=== PATIENT | female | born 1935 | race Caucasian/White ===

== ENCOUNTER 2018-04-27 07:17 | Outpatient (RCR) | payer MEDICARE ==
[~2018-04-27] VITALS: Ht 162.6 cm; Wt 61.2 kg
[2018-04-27] MEDS ORDERED: Methohexital Sodium Syr 100mg/10ml IVP ONE ×2 (07:18)
[2018-04-27] MEDS ORDERED: Succinylcholine 20mg/ml 10ml vial ONE ×2 (07:18)
[2018-04-27] MEDS ORDERED: NS 500ML ONE ×2 (07:18)
[2018-04-27 08:48] VITALS: BP 141/90
[2018-04-27] MEDS ORDERED: Sodium Chloride 500ML 500 ML IV ONE (09:01)
[2018-04-27 09:05] VITALS: BP 149/77
[2018-04-27 09:10] VITALS: BP 159/73
[2018-04-27 09:15] VITALS: BP 153/86
[2018-04-27 09:20] VITALS: BP 167/87
[2018-04-27 13:51] VITALS: BP 141/90
[2018-04-29 08:38] VITALS: BP 121/74
[2018-04-29] MEDS ORDERED: Sodium Chloride 500ML 500 ML IV ONE (08:51)
[2018-04-29 08:55] VITALS: BP 148/70
[2018-04-29 09:00] VITALS: BP 144/62
[2018-04-29 09:05] VITALS: BP 119/81
[2018-04-29 09:10] VITALS: BP 135/71
[2018-05-02] MEDS ORDERED: Succinylcholine 20mg/ml 10ml vial ONE (08:00)
[2018-05-02] MEDS ORDERED: NS 500ML ONE (08:00)
[2018-05-02] MEDS ORDERED: Methohexital Sodium Syr 100mg/10ml IVP ONE (08:00)
[2018-05-02 09:30] VITALS: BP 122/67
[2018-05-02] MEDS ORDERED: Sodium Chloride 500ML 500 ML IV ONE (09:42)
[2018-05-02 09:45] VITALS: BP 133/55
[2018-05-02 09:50] VITALS: BP 120/45
[2018-05-02 09:55] VITALS: BP 129/76
[2018-05-02 10:00] VITALS: BP 128/59
[2018-05-04] MEDS ORDERED: Succinylcholine 20mg/ml 10ml vial ONE (08:00)
[2018-05-04] MEDS ORDERED: NS 500ML ONE (08:00)
[2018-05-04] MEDS ORDERED: Methohexital Sodium Syr 100mg/10ml IVP ONE (08:00)
[2018-05-04 08:45] VITALS: BP 112/65
[2018-05-04] MEDS ORDERED: Sodium Chloride 500ML 500 ML IV ONE (08:57)
[2018-05-04 09:00] VITALS: BP 121/72
[2018-05-04 09:05] VITALS: BP 127/48
[2018-05-04 09:10] VITALS: BP 115/68
[2018-05-06] MEDS ORDERED: Acetaminophen 650 MG SUPP RECTAL ONE (08:00)
[2018-05-06] MEDS ORDERED: Succinylcholine 20mg/ml 10ml vial ONE (08:00)
[2018-05-06] MEDS ORDERED: NS 500ML ONE (08:00)
[2018-05-06] MEDS ORDERED: Methohexital Sodium Syr 100mg/10ml IVP ONE (08:00)
[2018-05-06 09:15] VITALS: BP 117/62
[2018-05-06] MEDS ORDERED: Sodium Chloride 500ML 500 ML IV ONE (09:28)
[2018-05-06 09:30] VITALS: BP 139/57
[2018-05-06 09:35] VITALS: BP 128/66
[2018-05-06 09:40] VITALS: BP 126/90
[2018-05-06 09:45] VITALS: BP 126/66
[2018-05-09] MEDS ORDERED: Succinylcholine 20mg/ml 10ml vial ONE (06:00)
[2018-05-09] MEDS ORDERED: NS 500ML ONE (06:00)
[2018-05-09] MEDS ORDERED: Methohexital Sodium Syr 100mg/10ml IVP ONE (06:00)
[2018-05-09 09:23] VITALS: BP 110/67
[2018-05-09] MEDS ORDERED: Sodium Chloride 500ML 500 ML IV ONE (09:36)
[2018-05-09 09:40] VITALS: BP 150/66
[2018-05-09 09:45] VITALS: BP 136/76
[2018-05-09 09:50] VITALS: BP 137/72
[2018-05-09 09:55] VITALS: BP 135/77
[2018-05-11] MEDS ORDERED: Succinylcholine 20mg/ml 10ml vial ONE (06:00)
[2018-05-11] MEDS ORDERED: Methohexital Sodium Syr 100mg/10ml IVP ONE (06:00)
[2018-05-11] MEDS ORDERED: NS 500ML ONE (06:00)
[2018-05-11 09:24] VITALS: BP 115/57
[2018-05-11] MEDS ORDERED: Sodium Chloride 500ML 500 ML IV ONE (09:36)
[2018-05-11 09:40] VITALS: BP 157/81
[2018-05-11 09:45] VITALS: BP 123/80
[2018-05-11 09:50] VITALS: BP 130/55
[2018-05-11 09:55] VITALS: BP 140/65
[2018-05-13] MEDS ORDERED: NS 500ML ONE (06:00)
[2018-05-13] MEDS ORDERED: Methohexital Sodium Syr 100mg/10ml IVP ONE (06:00)
[2018-05-13] MEDS ORDERED: Succinylcholine 20mg/ml 10ml vial ONE (06:00)
[2018-05-13 09:23] VITALS: BP 115/72
[2018-05-13 09:35] VITALS: BP 138/68
[2018-05-13] MEDS ORDERED: Sodium Chloride 500ML 500 ML IV ONE (09:35)
[2018-05-13 09:40] VITALS: BP 98/66
[2018-05-13 09:45] VITALS: BP 113/55
[2018-05-18] MEDS ORDERED: NS 500ML ONE (08:00)
[2018-05-18] MEDS ORDERED: Methohexital Sodium Syr 100mg/10ml IVP ONE (08:00)
[2018-05-18] MEDS ORDERED: Succinylcholine 20mg/ml 10ml vial ONE (08:00)
[2018-05-18 11:42] VITALS: BP 125/66
[2018-05-18] MEDS ORDERED: Sodium Chloride 500ML 500 ML IV ONE (11:55)
[2018-05-18 12:00] VITALS: BP 160/81
[2018-05-18 12:05] VITALS: BP 154/74
[2018-05-18 12:10] VITALS: BP 136/70
[2018-05-18 12:15] VITALS: BP 145/82
== END 2018-05-25 | disposition home or self-care (01) ==
LOC: ECT 07:17
DX: F31.5 Bipolar disorder, current episode depressed, severe, with psychotic features (principal)
CPT/HCPCS: 90870; J0330; J7040

== ENCOUNTER 2018-05-30 05:13 | Outpatient (RCR) | payer MEDICARE ==
[~2018-05-30] VITALS: Ht 162.6 cm; Wt 61.2 kg
[2018-05-30] MEDS ORDERED: Methohexital Sodium Syr 100mg/10ml IVP ONE (05:14)
[2018-05-30] MEDS ORDERED: NS 500ML ONE (05:14)
[2018-05-30] MEDS ORDERED: Succinylcholine 20mg/ml 10ml vial ONE (05:14)
[2018-05-30 09:15] VITALS: BP 110/69
[2018-05-30] MEDS ORDERED: Sodium Chloride 500ML 500 ML IV ONE (09:29)
[2018-05-30 09:30] VITALS: BP 140/77
[2018-05-30 09:35] VITALS: BP 119/54
[2018-05-30 09:40] VITALS: BP 119/59
[2018-05-30 09:41] VITALS: BP 118/64
[2018-05-30 09:45] VITALS: BP 118/64
[2018-06-15 07:29] VITALS: BP 105/62
[2018-06-15] MEDS ORDERED: Sodium Chloride 500ML 500 ML IV ONE (07:41)
[2018-06-15 07:45] VITALS: BP 105/62
[2018-06-15 07:50] VITALS: BP 131/69
[2018-06-15 07:55] VITALS: BP 115/43
[2018-06-15 08:00] VITALS: BP 115/61
[2018-06-15] MEDS ORDERED: Methohexital Sodium Syr 100mg/10ml IVP ONE (08:00)
[2018-06-15] MEDS ORDERED: Succinylcholine 20mg/ml 10ml vial ONE (08:00)
[2018-06-15] MEDS ORDERED: NS 500ML ONE (08:00)
== END 2018-06-24 | disposition home or self-care (01) ==
LOC: ECT 05:13
DX: F31.5 Bipolar disorder, current episode depressed, severe, with psychotic features (principal)
CPT/HCPCS: 90870; J0330; J7040

== ENCOUNTER 2018-07-11 07:19 | Outpatient (RCR) | payer MEDICARE ==
[~2018-07-11] VITALS: Ht 30.5 cm; Wt 0.5 kg
[2018-07-11] MEDS ORDERED: Succinylcholine 20mg/ml 10ml vial ONE (07:20)
[2018-07-11] MEDS ORDERED: Methohexital Sodium Syr 100mg/10ml IVP ONE (07:20)
[2018-07-11] MEDS ORDERED: NS 500ML ONE (07:20)
[2018-07-11 08:17] VITALS: BP 125/76
[2018-07-11] MEDS ORDERED: Sodium Chloride 500ML 500 ML IV ONE (08:30)
[2018-07-11 08:35] VITALS: BP 162/75
[2018-07-11 08:40] VITALS: BP 151/79
[2018-07-11 08:45] VITALS: BP 132/71
[2018-07-11 08:50] VITALS: BP 125/65
== END 2018-07-25 | disposition home or self-care (01) ==
LOC: ECT 07:19
DX: F31.5 Bipolar disorder, current episode depressed, severe, with psychotic features (principal)
CPT/HCPCS: 90870; J0330; J7040

== ENCOUNTER 2018-08-08 07:38 | Outpatient (RCR) | payer MEDICARE ==
[~2018-08-08] VITALS: Ht 30.5 cm; Wt 0.5 kg
[2018-08-08] MEDS ORDERED: Methohexital Sodium Syr 100mg/10ml IVP ONE (07:39)
[2018-08-08] MEDS ORDERED: Succinylcholine 20mg/ml 10ml vial ONE (07:39)
[2018-08-08] MEDS ORDERED: NS 500ML ONE (07:39)
[2018-08-08 08:26] VITALS: BP 130/77
[2018-08-08 08:45] VITALS: BP 134/64
[2018-08-08 08:50] VITALS: BP 128/64
[2018-08-08 08:55] VITALS: BP 124/64
[2018-08-08 09:00] VITALS: BP 112/65
== END 2018-08-25 | disposition home or self-care (01) ==
LOC: ECT 07:38
DX: F31.5 Bipolar disorder, current episode depressed, severe, with psychotic features (principal); E03.9 Hypothyroidism, unspecified; E78.5 Hyperlipidemia, unspecified; M17.10 Unilateral primary osteoarthritis, unspecified knee; R00.1 Bradycardia, unspecified; I87.2 Venous insufficiency (chronic) (peripheral); N18.3 Chronic kidney disease, stage 3 (moderate); I35.1 Nonrheumatic aortic (valve) insufficiency
CPT/HCPCS: 90870; J0330; J7040

== ENCOUNTER 2018-09-05 04:41 | Outpatient (RCR) | payer MEDICARE ==
[~2018-09-05] VITALS: Ht 162.6 cm; Wt 61.2 kg
[2018-09-05] MEDS ORDERED: Methohexital Sodium Syr 100mg/10ml IVP ONE (04:42)
[2018-09-05] MEDS ORDERED: Succinylcholine 20mg/ml 10ml vial ONE (04:42)
[2018-09-05] MEDS ORDERED: NS 500ML ONE (04:42)
[2018-09-05 07:51] VITALS: BP 132/78
[2018-09-05 08:05] VITALS: BP 148/72
[2018-09-05 08:10] VITALS: BP 146/77
[2018-09-05 08:15] VITALS: BP 128/74
[2018-09-05 08:20] VITALS: BP 129/71
== END 2018-09-22 | disposition home or self-care (01) ==
LOC: ECT 04:41
DX: F31.5 Bipolar disorder, current episode depressed, severe, with psychotic features (principal)
CPT/HCPCS: 90870; J0330; J7040

== ENCOUNTER 2018-10-03 05:08 | Outpatient (RCR) | payer MEDICARE ==
[~2018-10-03] VITALS: Ht 162.6 cm; Wt 61.5 kg
[2018-10-03] MEDS ORDERED: Succinylcholine 20mg/ml 10ml vial ONE (05:09)
[2018-10-03] MEDS ORDERED: NS 500ML ONE (05:09)
[2018-10-03] MEDS ORDERED: Methohexital Sodium Syr 100mg/10ml IVP ONE (05:09)
[2018-10-03 09:20] VITALS: BP 122/71
[2018-10-03 09:35] VITALS: BP 156/72
[2018-10-03 09:40] VITALS: BP 134/69
[2018-10-03 09:45] VITALS: BP 109/57
[2018-10-03 09:50] VITALS: BP 117/50
== END 2018-10-23 | disposition home or self-care (01) ==
LOC: ECT 05:08
DX: F31.5 Bipolar disorder, current episode depressed, severe, with psychotic features (principal)
CPT/HCPCS: 90870; J0330; J7040

== ENCOUNTER 2018-11-02 04:39 | Outpatient (RCR) | payer MEDICARE ==
[~2018-11-02] VITALS: Ht 30.5 cm; Wt 0.5 kg
[2018-11-02] MEDS ORDERED: NS 500ML ONE (04:40)
[2018-11-02] MEDS ORDERED: Succinylcholine 20mg/ml 10ml vial ONE (04:40)
[2018-11-02] MEDS ORDERED: Methohexital Sodium Syr 100mg/10ml IVP ONE (04:40)
[2018-11-02 08:17] VITALS: BP 135/77
[2018-11-02 08:30] VITALS: BP 141/98
[2018-11-02 08:35] VITALS: BP 147/68
[2018-11-02 08:40] VITALS: BP 100/74
[2018-11-02 08:45] VITALS: BP 122/63
== END 2018-11-22 | disposition home or self-care (01) ==
LOC: ECT 04:39
DX: F31.5 Bipolar disorder, current episode depressed, severe, with psychotic features (principal)
CPT/HCPCS: 90870; J0330; J7040

== ENCOUNTER 2018-11-30 04:27 | Outpatient (RCR) | payer MEDICARE ==
[~2018-11-30] VITALS: Ht 30.5 cm; Wt 0.5 kg
[2018-11-30] MEDS ORDERED: NS 500ML ONE (04:28)
[2018-11-30] MEDS ORDERED: Methohexital Sodium Syr 100mg/10ml IVP ONE (04:28)
[2018-11-30] MEDS ORDERED: Succinylcholine 20mg/ml 10ml vial ONE (04:28)
[2018-11-30 08:12] VITALS: BP 127/77
[2018-11-30 08:25] VITALS: BP 133/65
[2018-11-30 08:30] VITALS: BP 129/61
[2018-11-30 08:35] VITALS: BP 129/61
[2018-11-30 08:40] VITALS: BP 115/64
== END 2018-12-23 | disposition home or self-care (01) ==
LOC: ECT 04:27
DX: F31.5 Bipolar disorder, current episode depressed, severe, with psychotic features (principal)
CPT/HCPCS: 90870; J0330; J7040

== ENCOUNTER 2018-12-28 04:16 | Outpatient (RCR) | payer MEDICARE ==
[~2018-12-28] VITALS: Ht 162.6 cm; Wt 61.2 kg
[2018-12-28] MEDS ORDERED: NS 500ML ONE (04:17)
[2018-12-28] MEDS ORDERED: Methohexital Sodium Syr 100mg/10ml IVP ONE (04:17)
[2018-12-28] MEDS ORDERED: Succinylcholine 20mg/ml 10ml vial ONE (04:17)
[2018-12-28 08:30] VITALS: BP 129/72
[2018-12-28 08:51] VITALS: BP 154/74
[2018-12-28 08:56] VITALS: BP 136/65
[2018-12-28 09:01] VITALS: BP 136/56
[2018-12-28 09:06] VITALS: BP 134/66
== END 2019-01-22 | disposition home or self-care (01) ==
LOC: ECT 04:16
DX: F31.5 Bipolar disorder, current episode depressed, severe, with psychotic features (principal)
CPT/HCPCS: 90870; J0330; J7040

== ENCOUNTER 2019-02-06 05:55 | Outpatient (RCR) | payer MEDICARE ==
[~2019-02-06] VITALS: Ht 162.6 cm; Wt 61.2 kg
[2019-02-06] MEDS ORDERED: Succinylcholine 20mg/ml 10ml vial ONE (05:56)
[2019-02-06] MEDS ORDERED: Methohexital Sodium Syr 100mg/10ml IVP ONE (05:56)
[2019-02-06] MEDS ORDERED: NS 500ML ONE (05:56)
[2019-02-06 09:39] VITALS: BP 128/77
[2019-02-06 09:50] VITALS: BP 148/64
[2019-02-06 09:55] VITALS: BP 129/54
[2019-02-06 10:00] VITALS: BP 96/62
[2019-02-06 10:05] VITALS: BP 114/54
== END 2019-02-22 | disposition home or self-care (01) ==
LOC: ECT 05:55
DX: F31.5 Bipolar disorder, current episode depressed, severe, with psychotic features (principal)
CPT/HCPCS: 90870; J0330; J7040